=== PATIENT | male | born 1995 | race Caucasian/White ===

== ENCOUNTER 2019-07-06 13:51 | Emergency (ER) | payer BC, SELFPAY ==
[2019-07-06 14:07] VITALS: BP 112/72; PULSE 101; RESP 20; TEMP 39.2; O2SAT 100
--- NOTE | 2019-07-06 14:07 | ED.GENADULT ---
HPI - General Adult General Chief complaint: Upper Respiratory Infection Stated complaint: rankin/sore throat/fever/sob/cough/chills Time Seen by Provider: 07/06/19 14:07 Source: patient Mode of arrival: ambulatory Limitations: no limitations History of Present Illness HPI narrative: 24-year-old male patient presents to the [facility] with complaints of flulike symptoms that started this morning. Patient states he has had fevers, chills, body aches, cough, runny nose and congestion. Patient states he did not get a flu shot this year. Patient states he does vape. Patient states that his last dose of Tylenol was at 7 AM this morning. Related Data Allergies Allergy/AdvReac Type Severity Reaction Status Date / Time No Known Allergies Allergy Verified 07/06/19 14:09 Review of Systems Review of Systems: Narrative: CONSTITUTIONAL: Positive subjective fever, body aches, chills, denies sweats. EYES: Denies visual changes, redness, or discharge. ENT: Positive rhinorrhea, congestion, denies sore throat, or otalgia. CARDIOVASCULAR: Denies chest pain, palpitations, or edema. RESPIRATORY: Positive cough, denies dyspnea. GASTROINTESTINAL: Denies abdominal pain, nausea, vomiting, or diarrhea. GENITOURINARY: Denies dysuria or hematuria. SKIN: Denies rash or itching. MUSCULOSKELETAL: Denies back pain, joint pain, or myalgia. NEUROLOGIC: Denies headache, numbness, or weakness. PSYCHIATRIC: Denies anxiety or depression. PMFSH Social History Social History Gender identity (if verbalized by the patient): Male Comments At the time of my signature I agree with nursing past medical history, surgical, social, and family history. There is no relevant family history pertinent to the presenting complaint. Exam Narrative: Exam Narrative: GENERAL: ill-appearing, well-nourished, and in no acute distress. HEAD: Normocephalic, atraumatic. No tenderness noted to frontal maxillary sinuses on palpation EYES: PERRLA and EOMI. ENT: Nares with erythema and edema noted bilaterally, patent, no rhinorrhea or epistaxis. Mucous membranes moist. Posterior pharynx with postnasal drip noted. No tonsil enlargement no exudates or lesions present. Bilateral TMs are clear no erythema or foreign bodies in the canal. NECK: Supple. No lymphadenopathy CHEST: Clear to auscultation. No respiratory distress. HEART: Regular rate and rhythm. No murmur heard. Normal peripheral pulses. ABDOMEN: Soft, nontender, nondistended, normal active bowel sounds. EXTREMITIES: Normal range of motion. No edema. SKIN: Warm, dry, no rash. NEURO: No focal deficits. Alert and oriented x3. Course Vital Signs Vital signs: Vital Signs Temperature 39.2 C H 07/06/19 14:07 Pulse Rate 101 H 07/06/19 14:07 Respiratory Rate 07/06/19 14:07 Blood Pressure 112/72 07/06/19 14:07 Pulse Oximetry 100 07/06/19 14:07 Temperature 39.2 C H 07/06/19 14:07 Pulse Rate 101 H 07/06/19 14:07 Respiratory Rate 07/06/19 14:07 Blood Pressure 112/72 07/06/19 14:07 Pulse Oximetry 100 07/06/19 14:07 Vital signs reviewed. Medical Decision Making Differential Diagnosis Differential Diagnosis: Differential diagnosis: Allergic rhinitis, chronic sinusitis, tonsillitis, acute sinusitis, infectious mononucleosis, seasonal influenza, pertussis, diphtheria, meningococcal disease, viral syndrome, viral bronchitis, RSV. Notify patient that he is positive today for influenza A. Discussed with him that we can go ahead and prescribe him some antiviral since his symptoms just started this morning if he would like. Discussed with patient the pros and cons of antivirals as well as the side effects. Patient verbalized that he would like to go ahead and try the antivirals today. Discussed with patient that the thing that is going to really make him feel better is going to be [id number] Tylenol Motrin. Discussed with him he needs to probabl
== END 2019-07-06 14:18 | disposition home or self-care (01) ==
PROVIDERS: Emergency Provider Nurse Practitioner Family; PCP Internal Medicine
DX: J10.1 Influenza due to other identified influenza virus with other respiratory manifestations (principal)
CPT/HCPCS: 87804; 99203; G0463